=== PATIENT | female | born 1980 | race Caucasian/White ===

== ENCOUNTER 2017-02-02 09:47 | Emergency (ER) | payer OTHER ==
[2017-02-02 10:27] VITALS: BP 97/74
--- NOTE | 2017-02-02 10:37 | UC ---
Throat Pain/Nasal Erick HPI - HPI Summary HPI Summary: complaint of nasal congestion and cough that started aprox 01/29/17 slight sore throat and body aches for the first 2 days headaches productive cough with green sputum, chest evans with cough having fits of coughing at night denies fever and chills, N/V/D taking mucinex without much relief - History of Current Complaint Chief Complaint: UCRespiratory Stated Complaint: CONGESTION,DIZZINESS,COUGH Time Seen by Provider: 02/02/17 10:35 Hx Obtained From: Patient Hx Last Menstrual Period: 01/12/17 - Allergies/Home Medications Allergies/Adverse Reactions: Allergies Allergy/AdvReac Type Severity Reaction Status Date / Time Penicillins Allergy Intermediate Hives Verified 02/02/17 10:20 Home Medications: Home Medications Levonorgestrel (Iud) [Mirena IUD] 20 mcg IU ONCE 02/02/17 [History Confirmed ] PMH/Surg Hx/FS Hx/Imm Hx Previously Healthy: Yes Endocrine History Of: Denies: Diabetes Cardiovascular History Of: Denies: Cardiac Disorders Respiratory History Of: Denies: Asthma - Surgical History Surgical History: Yes Surgery Procedure, Year, and Place: coposcopy - Family History Known Family History: Negative: Cardiac Disease, Hypertension, Diabetes - Social History Occupation: Employed Full-time Lives: With Family Alcohol Use: None Substance Use Type: None Smoking Status (MU): Heavy Every Day Tobacco Smoker Type: Cigarettes Amount Used/How Often: 1 pack daily Cessation Counseling: Patient Advised to Stop Review of Systems Constitutional: Negative Skin: Negative Eyes: Negative ENT: Sore Throat, Nasal Discharge Respiratory: Cough Cardiovascular: Negative Gastrointestinal: Negative Genitourinary: Negative Motor: Negative Neurovascular: Negative Musculoskeletal: Negative Neurological: Headache Psychological: Negative All Other Systems Reviewed And Are Negative: Yes Physical Exam Triage Information Reviewed: Yes Appearance: No Pain Distress, Well-Nourished Vital Signs: Initial Vital Signs Temp 98.4 F 02/02/17 10:21 Pulse 98 02/02/17 10:21 Resp 16 02/02/17 10:21 BP 97/74 02/02/17 10:21 Pulse Ox 98 02/02/17 10:21 Vital Signs Reviewed: Yes Eyes: Positive: Conjunctiva Clear ENT: Positive: Pharyngeal erythema, Nasal congestion, Nasal drainage Neck: Positive: No Lymphadenopathy Respiratory: Positive: Rhonchi - in BLL, Wheezing Cardiovascular: Positive: RRR, No Murmur, Pulses Normal, Brisk Capillary Refill Abdomen Description: Positive: Nontender, Soft Bowel Sounds: Positive: Present Musculoskeletal: Positive: No Edema Psychological Exam: Normal Skin Exam: Normal Re-Evaluation - Re-Evaluation First Eval Change: Improved - more air movement throughout Throat Pain/Nasal Course/Dx - Course Course Of Treatment: exam completed. will treat with antibiotics d/t smoking hx - Differential Dx/Diagnosis Differential Diagnosis/HQI/PQRI: Pharyngitis, URI, Other - bronchitis Provider Diagnoses: bronchitis Discharge - Discharge Plan Condition: Stable Disposition: HOME Prescriptions: Albuterol HFA INHALER* [Ventolin HFA Inhaler*] 2 puff INH Q4H PRN #1 mdi PRN Reason: Wheezing Azithromycin TAB* [Zithromax TAB (Z-WILLIE) 250 mg #6 tabs] 2 tab PO .TODAY, THEN 1 DAILY #1 willie Patient Education Materials: Acute Bronchitis (ED), How to Stop Smoking (ED) Referrals: Nikhil Vogel MD [Primary Care Provider] - Additional Instructions: Please take antibiotic as directed Use your albuterol inhaler every 4-6 hours when needed for wheezing, shortness of breath or uncontrolled coughing. Increase fluids and rest Take acetaminophen or ibuprofen for fever or pain Please review your discharge instructions. If your symptoms do not improve please call your primary care provider or return to urgent care.
[2017-02-02] MEDS ORDERED: Albuterol/Ipratropium NEB.SOL* Albuterol 2.5 MG/Ipratropium 0.5 MG 3 ML INH ONE (10:46)
== END 2017-02-02 11:50 | disposition home or self-care (01) ==
LOC: UCCORT 09:47
DX: J40 Bronchitis, not specified as acute or chronic (principal); Z88.0 Allergy status to penicillin; F17.210 Nicotine dependence, cigarettes, uncomplicated
CPT/HCPCS: 99202; A9270-GY; G0463